=== PATIENT | female | born 1985 | race Two or more races ===

== ENCOUNTER 2020-08-02 12:43 | Emergency (ER) | payer OTHER ==
[~2020-08-02] VITALS: Ht 152.4 cm; Wt 66.0 kg
[2020-08-02] MEDS ORDERED: KETOROLAC 30 MG/1 ML ONE (15:46)
[2020-08-02] MEDS ORDERED: KETOROLAC 30 MG/1 ML IM ONE (16:00)
--- NOTE | 2020-08-02 16:43 | NUR ---
PT REPORTS IMPROVED S/S WITH MEDICATIONS. DC EDUCATION PROVIDED, PT DEMONSTRATES UNDERSTANDING. PT REMAINS IN ROOM AWAITING SO DISPO.
[2020-08-02 16:44] VITALS: BP 118/60
== END 2020-08-02 16:46 | disposition home or self-care (01) ==
LOC: ED 16:12
DX: S29.012A Strain of muscle and tendon of back wall of thorax, initial encounter (principal); V49.59XA Passenger injured in collision with other motor vehicles in traffic accident, initial encounter; Y93.89 Activity, other specified; Y92.410 Unspecified street and highway as the place of occurrence of the external cause; Y99.8 Other external cause status
CPT/HCPCS: 72110; 96372; 99283; J1885